=== PATIENT | female | born 1970 ===

== ENCOUNTER → 2020-06-30 | Outpatient (REF) | payer OTHER | LOC: M LAB REF 09:29 | PROVIDERS: ATTEND Internal Medicine Endocrinology, Diabetes & Metabolism | DX: E04.2 Nontoxic multinodular goiter (principal) ==

== ENCOUNTER → 2021-07-27 | Outpatient (REF) | payer OTHER | LOC: M LAB REF 19:16 | PROVIDERS: ATTEND Internal Medicine Endocrinology, Diabetes & Metabolism | DX: E04.2 Nontoxic multinodular goiter (principal) ==